=== PATIENT | male | born 1980 | race Caucasian/White ===

== ENCOUNTER 2017-03-07 10:32 | Inpatient (IN) | payer MEDICARE, OTHER ==
--- NOTE | ~2017-03-07 | DS ---
Unit #: [id number] #: [id number] Patient: FADI HERNANDEZ [id number] [facility] [address] [place] [address] [id number] MR#: [id number] NAME: FADI HERNANDEZ ROOM: [facility] Age: 36 Sex: M Admission Date: 03/07/2017 : 1980 Discharge Date: 03/11/2017 Attending Physician: Eduardo Mendoza M.D. Primary Care Physician: Primary Care Physician No DISCHARGE SUMMARY DISCHARGE DATE 03/11/2017. REASON FOR ADMISSION The patient is a 36-year-old white male, admitted to the [facility] unit because of polysubstance abuse of heroin and amphetamines. HOSPITAL COURSE The patient was admitted to the [facility] unit and placed on routine detoxification protocol for opioids. His stay in the hospital was a fairly uneventful one. He reported no suicidal or homicidal ideation and was in brighter spirits. As his stay in the hospital progressed, he was begun on prednisone secondary to some knee pain. By 03/10/2017, arrangements made for the patient to return to clinic the following day and discharge was ordered. FINAL DIAGNOSES Methamphetamine use disorder; opioid use disorder. DISPOSITION ON DISCHARGE The patient is discharged on the following medications: Prednisone 20 mg tapered dose for knee pain. DISCHARGE INSTRUCTIONS No dietary or physical restrictions were placed upon the patient at the time of discharge. FOLLOWUP Followup will take place through the auspices of community mental health resources in the [place], [place] area. PROGNOSIS The patient's prognosis is considered fair. Dictated by... Eduardo Mendoza M.D. JOAQUIN/carmel TD: 03/10/2017 15:05 JOB #: [id number] Unit #: [id number] #: [id number] Patient: FADI HERNANDEZ DISCHARGE SUMMARY Page 1 of 1 X Eduardo Mendoza MD X DISCHARGE SUMMARY
--- NOTE | ~2017-03-07 | HP ---
Unit #: [id number] #: [id number] Patient: FADI HERNANDEZ [id number] [place] [address] [id number] I MR#: [id number] NAME: FADI HERNANDEZ ROOM: [facility] Age: 36 Sex: M Admission Date: 03/07/2017 : 1980 Attending Physician: Eduardo Mendoza M.D. Admitting Physician: Eduardo Mendoza M.D. Primary Care Physician: Primary Care Physician No HISTORY AND PHYSICAL HISTORY OF PRESENT ILLNESS Fadi is a 36 year old admitted to [facility] because of his polysubstance abuse which includes heroin and methamphetamine. PAST MEDICAL HISTORY Long history of illicit substance abuse to include IV heroin and methamphetamine. PAST SURGICAL HISTORY Nothing reported ALLERGIES No known drug allergies. SOCIAL HISTORY Smokes one pack per day. Drinks alcohol rarely. Admits to a long history of illicit substance abuse to include IV drugs. FAMILY HISTORY Medically noncontributory. REVIEW OF SYSTEMS CONSTITUTIONAL: No fever or chills. HEENT: Denies any sore throat, ear pain or runny nose. CARDIOVASCULAR: Denies chest pain, irregular heart rhythm or palpitations. CHEST: Denies shortness of breath or cough. No hemoptysis. GASTROINTESTINAL: Denies nausea, vomiting, diarrhea or chronic constipation. ENDOCRINE: Denies history of increased thirst or urination. No recent significant weight loss or gain. GENITOURINARY: Denies dysuria, frequency, or hematuria. SKIN: Denies any rashes. HEMATOLOGIC: Denies history of increased bleeding or bruising. MUSCULOSKELETAL: Denies any hot, swollen joints. No generalized muscle pain. NEUROLOGIC: Denies problems with vision or speech. No frequent, severe headaches. No numbness, tingling or weakness in any extremities. Denies loss of bladder or bowel control. CURRENT MEDICATIONS Detox protocol Unit #: [id number] #: [id number] Patient: FADI HERNANDEZ PHYSICAL EXAMINATION GENERAL: Alert, well-nourished, in no apparent distress. VITAL SIGNS: Blood pressure 130/100, heart rate 80, respirations 16, temperature 98.6. WEIGHT: 180 pounds. HEIGHT: 6'4". SKIN: Warm and dry without rash or lesion. HEENT: Normocephalic. TMs not viewed. Oral and nasal passages clear. Conjunctivae clear. Pupils equal, round and reactive to light and accommodation. Extraocular movements intact. NECK: Supple without lymphadenopathy or thyromegaly. HEART: Regular rate and rhythm without murmur. LUNGS: Clear. ABDOMEN: Soft, nontender. : Not done. EXTREMITIES: No evidence of cyanosis, clubbing or edema. Moves all extremities without focal deficit. NEUROLOGICAL: Grossly within normal limits. Cranial Nerves: II: Visual casas are intact. III, IV AND : Extraocular movements are intact. Pupils are equal, round and reactive to light. V: Facial sensation is grossly normal. VII: Facial movements and expression are normal. VIII: Auditory acuity grossly intact. IX, X: Uvula is midline. Phonation is normal. XI: Patient shrugs shoulders and turns head normally. XII: Tongue protrudes in the midline. Sensory and Motor Function: Sensory and motor sensation is grossly normal. Motor: moves all extremities well. Coordination: Gait is normal. Deep Tendon Reflexes: Intact. IMPRESSION Psychiatric admission RECOMMENDATIONS PSYCHIATRIC: Per psychiatrist. MEDICAL: I see no contraindications to participating in facility's activities. MEDICAL PROGNOSIS Good. MEDICAL CONDITION Stable. Dictated by... Kaela Rivera P.A.-C. for Kavita Gr/gelacio TD: 03/08/2017 00:32 JOB #: [id number] Unit #: [id number] #: [id number] Patient: FADI HERNANDEZ HISTORY AND PHYSICAL Page 1 of 1 X Kaela Rivera HISTORY AND PHYSICAL
--- NOTE | ~2017-03-07 | PN ---
Unit #: [id number] #: [id number] Patient: FADI HERNANDEZ [id number] [facility] [address] [place] [address] [id number] I MR#: [id number] NAME: FADI HERNANDEZ ROOM: [facility] Age: 36 Sex: M Admission Date: 03/07/2017 : 1980 Attending Physician: Eduardo Mendoza M.D. Admitting Physician: Eduardo Mendoza M.D. Primary Care Physician: Primary Care Physician Vikki AVILA PROGRESS NOTES DATE 03/08/2017 DISCUSSION The patient is abed today, continuing to complain of severe symptoms of opioid withdrawal, particularly with regard to his arms and legs aching. I have expressed to the patient his need to avail himself of prescribed p.r.n.s specifically Neurontin. Dictated by... Eduardo Mendoza M.D. CB/bzg TD: 03/08/2017 14:45 JOB #: [id number] MARGARITA RODRIGUEZ NOTES Page 1 of 1 X Eduardo Mendoza MD PROGRESS NOTE
--- NOTE | ~2017-03-07 | CO ---
Unit #: [id number] #: [id number] Patient: FADI HERNANDEZ [id number] [facility] [address] [place] [address] [id number] I MR#: [id number] NAME: FADI HERNANDEZ ROOM: [facility] Age: 36 Sex: M Admission Date: 03/07/2017 : 1980 Attending Physician: Eduardo Mendoza M.D. Primary Care Physician: Primary Care Physician No Consultation Date: 03/09/2017 CONSULTATION REPORT Medical consult was requested by Dr. Mendoza. HISTORY OF PRESENT ILLNESS Fadi reports that 4 days ago, he woke up after blacking out and found his left knee twisted underneath of him. Since then, he has been having pain with walking, this needs to be getting worse. He also feels that his knee is tight and has sensation of his knee is going to give out and buckle underneath while he is walking. He has a history of ibuprofen that causes hives and itching, and has been taking Tylenol, which does not really seem to be helping. He has not been using now. He has no other complaints. PHYSICAL EXAMINATION CARDIAC: Regular rate and rhythm. No murmurs, gallops, or rubs. RESPIRATORY: Clear to auscultation bilaterally. MUSCULOSKELETAL: Abnormal gait because of pain in left knee, mild edema in left knee. No tenderness to palpation. ASSESSMENT AND PLAN Left knee pain. We will begin ice t.i.d. and prednisone. Please notify if symptoms are unresolved, the patient will follow up with primary care provider once discharged. Dictated by... Gunner Brock/carmel TD: 03/09/2017 17:42 JOB #: [id number] CONSULTATION REPORT Page 1 of 1 X SETH HANSON APRN X CONSULTATION REPORT
--- NOTE | ~2017-03-07 | PA ---
Unit #: [id number] #: [id number] Patient: FADI HERNANDEZ [id number] [facility] [address] [place] [address] [id number] I MR#: [id number] NAME: FADI HERNANDEZ ROOM: [facility] Age: 36 Sex: M Admission Date: 03/07/2017 : 1980 Date of Assessment: 03/07/2017 Attending Physician: Eduardo Mendoza M.D. Admitting Physician: Eduardo Mendoza M.D. Primary Care Physician: Primary Care Physician No PSYCHIATRIC ASSESSMENT IDENTIFYING INFORMATION The patient is a 36-year-old white male admitted with a history of heroin dependence and auditory hallucinations as well as suicidal thinking. CHIEF COMPLAINT "I'm coming off this heroin bad." INFORMANT Patient, reliability is fair. HISTORY OF PRESENT ILLNESS The patient is a 36-year-old white male admitted to the [address] [place] [address] Unit reporting positive suicidal ideation or auditory hallucinations. The patient also reports that he has been abusing heroin and has not used this some 3 days. He states that he has been active in heroin withdrawal and feels that his auditory hallucinations are probably related thereto. The patient reports a history of one previous chemical dependence treatment, but does not recall where on when this took place. He is originally from [place], [place], but states he has been in the [facility] for the past 4 months. He hopes to return to [place] upon his discharge from this facility, where he lives with is mother. He is not presently employed. The patient does admit to intravenous heroin use and also abuses cocaine and Methamphetamine. He has served time in group home for theft in the past, but currently faces no legal charges. The patient has been homeless since arriving in [place]. PAST PSYCHIATRIC HISTORY As above. PAST MEDICAL HISTORY Noncontributory. MEDICATIONS None. ALLERGIES None. FAMILY HISTORY Noncontributory. SOCIAL HISTORY The patient completed the tenth grade. He is not presently employed. He Unit #: [id number] #: [id number] Patient: FADI HERNANDEZ reports that he has "4 stepdaughters" but has no children of his own. His legal history is described previously. The patient is a smoker. His substance abuse history is likewise noted previously. MENTAL STATUS EXAMINATION Examination at this time reveals the patient to be a well-developed well-nourished heavily tattooed white male who is in a state of some dishevelment and malodorousness. He is awake, alert, and oriented in all spheres. His mood is mildly dysphoric, his affect constricted. Speech is generally well-coherent. There are no gross deficits in memory or cognition noted. Intelligence is judged to be in the average range based on fund of knowledge. The patient is cooperative throughout the interview. He is currently endorsing positive suicidal ideation. He denies homicidal ideation. He reports positive auditory hallucinations. His judgment and insight appear to be somewhat impaired. ASSETS AND LIABILITIES The patient's assets are to be assessed. Liabilities: Homelessness, lack of resources. DIAGNOSTIC IMPRESSION 1. Opioid use disorder. 2. Methamphetamine use disorder. 3. Psychotic disorder unspecified. TREATMENT PLAN The patient remains hospitalized for safety and stabilization. Routine detoxification protocol for opioids has been initiated, and suicide precautions are in place. Given the patient's predominant substance abuse issues, transfer to one of our chemical dependence units will be ordered. ESTIMATED LENGTH OF STAY 3 to 5 days. Dictated by... Eduardo Mendoza M.D. Laure TD: 03/07/2017 14:56 JOB #: [id number] PSYCHIATRIC ASSESSMENT Page 1 of 1 X Eduardo Mendoza MD PSYCHIATRIC ASSESSMENT
--- NOTE | ~2017-03-07 | PN ---
Unit #: [id number] #: [id number] Patient: FADI HERNANDEZ [id number] [facility] [address] [place] [address] [id number] I MR#: [id number] NAME: FADI HERNANDEZ ROOM: [facility] Age: 36 Sex: M Admission Date: 03/07/2017 : 1980 Attending Physician: Eduardo Mendoza M.D. Admitting Physician: Eduardo Mendoza M.D. Primary Care Physician: Primary Care Physician Vikki AVILA PROGRESS NOTES DATE 03/09/2017 DISCUSSION The patient is abed resting comfortably today. He offers no new complaints. We continue to plan to assist the patient in returning home to [place] on Friday. Dictated by... Eduardo Mendoza M.D. CB/gelacio TD: 03/10/2017 03:16 JOB #: [id number] MARGARITA PROGRESS NOTES Page 1 of 1 X Eduardo Mendoza MD X PROGRESS NOTE
[2017-03-08 11:25] LABS: BASOPHIL% 0.6 % (0-2.5); EOSINOPHIL# 0.2 X10e3 (0-0.7); EOSINOPHIL% 2.4 % (0.0-7.0); HEMATOCRIT 40.3 % (38.0-50.0); HEMOGLOBIN 13.3 gm/dL (13.0-16.0); LYMPHOCYTE# 2.4 X10e3 (1.0-3.5); LYMPHOCYTE% 36.9 % (17.0-45.0); MEAN CELL VOLUME 92.5 FL (83-96); MEAN CORPUSCULAR HEMOGLOBIN 30.6 PG (28-34); MEAN CORPUSCULAR HGB CONC 33.1 g/dL (30-36); MONOCYTE# 0.6 X10e3 (0-1.0); MONOCYTE% 9.5 % (3.0-12.0); NEUTROPHIL# 3.2 X10e3 (1.5-7.1); NEUTROPHIL% 50.6 % (40-75); PLATELET COUNT 251 X10e3 (140-420); RED BLOOD COUNT 4.36 X10e (3.90-5.60); RED CELL DISTRIBUTION WIDTH 12.7 % (11.0-15.5); WHITE BLOOD COUNT 6.4 X10e3 (4.0-10.5)
[2017-03-08 11:26] LABS: DIFF IND NO
[2017-03-08 12:18] LABS: ALBUMIN SERUM 3.4 g/dL (3.5-5.0); BILIRUBIN,TOTAL 0.9 mg/dL (0.2-2.0); BUN/CREATININE RATIO 23.75; CALCIUM SERUM 8.5 mg/dL (8.4-10.2); CREATININE SERUM 0.8 mg/dL (0.6-1.4); POTASSIUM 4.4 mmol/L (3.5-5.1)
[2017-03-08 13:34] LABS: URINE APPEARANCE TURBID; URINE BILIRUBIN NEG (NEG); URINE BLOOD NEG (NEG); URINE COLOR DK YELLOW; URINE GLUCOSE NEG (NEG); URINE KETONE NEG (NEG); URINE LEUKOCYTE ESTERASE NEG (NEG); URINE NITRATE NEG (NEG); URINE PROTEIN NEG (NEG); URINE SPECIFIC GRAVITY 1.034 (1.003-1.035)
[2017-03-08 13:50] LABS: AMPHETAMINE POS (NEG); BARBITURATES NEG (NEG); BENZODIAZEPINES NEG (NEG); COCAINE NEG (NEG); MARIJUANA NEG (NEG); OPIATES NEG (NEG); TRICYCLIC ANTIDEPRESSANTS NEG (NEG); U METHADONE NEG (NEG)
[2017-03-15 15:38] LABS: HA AB IGM (HEPPAN) Nonreactive (()); HB CORE AB IGM (HEPPAN) Nonreactive (Nonreactive); HB S AG (HEPPAN) Nonreactive (Nonreactive); HEP C AB (HEPPAN) Reactive (Nonreactive)
== END 2017-03-11 09:30 | DRG 897 ==
LOC: P1S 10:32 → P1E 17:13
PROVIDERS: Specialist
PROC: HZ2ZZZZ Detoxification Services for Substance Abuse Treatment (ICD-10-PCS; principal; 2017-03-07)
DX: F11.10 Opioid abuse, uncomplicated (principal); F23 Brief psychotic disorder; F15.10 Other stimulant abuse, uncomplicated; F17.210 Nicotine dependence, cigarettes, uncomplicated; M25.562 Pain in left knee
CPT/HCPCS: 80053; 80074; 80307; 81003; 85025; 86592; 87522; 87806